=== PATIENT | male | born 1955 | race Two or more races ===

== ENCOUNTER 2018-01-18 10:47 | Outpatient (CLI) | payer OTHER | END 2018-01-18 10:57 | disposition home or self-care (01) | LOC: RAD 501 10:47 | DX: M25.562 Pain in left knee (principal) ==

== ENCOUNTER 2018-04-28 13:33 | Outpatient (CLI) | payer OTHER ==
[2018-04-30] MEDS ORDERED: COZAAR25 MG PO (14:31)
== END 2018-04-28 13:51 | disposition home or self-care (01) ==
LOC: LAB 13:33
DX: Z76.89 Persons encountering health services in other specified circumstances (principal)

== ENCOUNTER → 2018-04-30 06:51 | Outpatient (CLI) | payer OTHER ==
[~2018-04-30 06:51] MED LIST: COZAAR25 MG PO
== END | disposition home or self-care (01) ==
LOC: LAB 06:51
DX: D64.89 Other specified anemias (principal); E88.89 Other specified metabolic disorders; D68.8 Other specified coagulation defects; N39.0 Urinary tract infection, site not specified; Z22.322 Carrier or suspected carrier of Methicillin resistant Staphylococcus aureus; E55.9 Vitamin D deficiency, unspecified; M85.9 Disorder of bone density and structure, unspecified; E83.42 Hypomagnesemia; I49.8 Other specified cardiac arrhythmias

== ENCOUNTER 2018-05-18 05:10 | Day surgery (SDC) | payer OTHER | END 2018-05-18 14:10 | disposition home or self-care (01) | LOC: CIR.AMB 05:10 | DX: M23.322 Other meniscus derangements, posterior horn of medial meniscus, left knee (principal); M22.42 Chondromalacia patellae, left knee; M12.262 Villonodular synovitis (pigmented), left knee ==

== ENCOUNTER 2024-02-09 13:28 | Outpatient (CLI) | payer OTHER ==
[~2024-02-09 13:28] MED LIST changes: +LIDODERM1 EACH TOP; +MEDROLPACK PO; +NEURONTIN300 MG PO
== END 2024-02-09 13:29 | disposition home or self-care (01) ==
LOC: NUCLEAR 13:28
PROVIDERS: ATTEND Orthopaedic Surgery
DX: M81.0 Age-related osteoporosis without current pathological fracture (principal)